=== PATIENT | female | born 2000 | race Two or more races ===

== ENCOUNTER 2022-01-09 12:53 | Emergency (ER) | payer OTHER ==
[~2022-01-09] VITALS: Ht 154.9 cm; Wt 62.6 kg
== END 2022-01-09 18:38 | disposition home or self-care (01) ==
LOC: ER 12:53
DX: D64.9 Anemia, unspecified (principal)

== ENCOUNTER 2022-06-20 21:39 | Emergency (ER) | payer OTHER ==
[~2022-06-20] VITALS: Ht 154.9 cm; Wt 65.8 kg
[2022-06-20] MEDS ORDERED: IRON236 MG (21:55)
[2022-06-20] MEDS ORDERED: CELEBREX200MG PO (23:27)
[2022-06-20] MEDS ORDERED: MEDROLPACK PO (23:27)
[2022-06-20] MEDS ORDERED: METAXALONE800 MG PO (23:27)
[2022-06-20] MEDS ORDERED: TYLENOL ARTHRI650 MG PO (23:27)
== END 2022-06-20 23:44 | disposition home or self-care (01) ==
LOC: ER 21:39
DX: M54.2 Cervicalgia (principal); M25.511 Pain in right shoulder